=== PATIENT | female | born 1975 | race Caucasian/White ===

== ENCOUNTER → 2016-07-18 | Day surgery (SDC) | payer OTHER ==
[~2016-07-18] VITALS: Ht 165.1 cm; Wt 55.3 kg
[~2016-07-18] MED LIST: ADDERAL20 MG ORAL; ADDERALL XR 1010 MG ORAL; Depo-Medrol 80mg Vial IARTIC ONE; Depo-Medrol 80mg Vial ONE; OXYCONTIN30 MG ORAL; ZOLOFT100 MG ORAL
--- NOTE | 2016-07-18 08:55 | Short Stay Surgery H&P ---
History of Present Illness History of Present Illness Chief Complaint back pain HPI Amanda Castillo is a 40 year old female who was admitted on for Spondylosis w /o myelopathy Patient History PAST MEDICAL HISTORY: (1) Lumbosacral spondylosis Past Surgeries: Social History: Review of Systems Cardiovascular: Denies: CABG, CAD - stable, CHF, AR, angina, dysrhythmia, hypertension, no symptoms, other, peripheral vascular disease, rheumatic heart disease, see HPI, source of infx - skin, source of infx-indw cath, source of infx-prosthesis, valvular disease Respiratory: Denies: COPD, CPAP, URI, asthma, chronic bronchitis, home 02, no symptoms, other, pneumonia, see HPI, sleep apnea, tuberculosis Skeletal: Reports: other - baron sherly, spinal disc disease Gastrointestinal: Denies: gastro esophageal reflux disease, hepatitis A,B,C, hiatal hernia, jaundice, no symptoms, obesity, other, peptic ulcer disease, see HPI Genitourinary: Denies: BPH, UTI, dialysis, endstage renal disease, no symptoms , other, renal insufficiency, see HPI, urinary retention Neurologic: Denies: neuro muscular disease, neuropathy, no symptoms, other, see HPI, seizure, stroke/TIA Endocrine: Denies: diabetes - type 1, diabetes - type 2, no symptoms, other, post menopausal, see HPI, thyroid Hematologic: Denies: anemia, coagulopathy, no symptoms, other, prior transfusion, see HPI Physical Exam Skin: normal HENT: normal Heart: normal Lungs: normal Abdomen: normal Extremities: normal Genitourinary: normal Plan Plan of Care L2-L3 and possible L3-L4 intra-articular facet injections Preop Interventions rest, heat, ice, medication, physical therapy, pain injections, surgery Summary of Findings baron sherly, scoliosis, lumbosacral spondylosis Final Diagnosis: Attestation Are the patient's medical conditions optimized for surgery? Attestation Response: yes MARIAELENA MONTOYA M.D. Jul 18, 2016 08:55
--- NOTE | 2016-07-18 08:56 | Pre-Procedure Note/Attestation ---
Pre-Procedure Note/Attestation Complete Prior to Procedure Planned Procedure: bilateral Procedure Narrative: L2-L3 and possible L3-L4 bilateral intra-articular facet injections under fluoroscopic guidance. Indications for Procedure Pre-Operative Diagnosis: lumbosacral spondylosis Attestation I attest that I discussed the nature of the procedure; its benefits; risks and complications; and alternatives (and the risks and benefits of such alternatives ), prior to the procedure, with the patient (or the patient's legal livestock sales representative). I attest that, if there was a reasonable possibility of needing a blood transfusion, the patient (or the patient's legal livestock sales representative) was given the [place] [facility] [employer] [facility] standardized written summary, pursuant to the Ivan Yarnell Blood Safety Act ([place] Health and Safety Code # 1645, as amended). I attest that I re-evaluated the patient just prior to the surgery and that there has been no change in the patient's H&P, except as documented below: MARIAELENA MONTOYA M.D. Jul 18, 2016 08:56
[2016-07-18 09:21] VITALS: BP 130/79
[2016-07-18 10:10] VITALS: BP 122/69
--- NOTE | 2016-07-18 13:17 | Brief Operative Note ---
Immediate Post Operative Note Operative Note Chief Complaint: lower back pain Pre-op Diagnosis: lumbosacral spondylosis Procedure: Bilateral L2-L3 and L3-L4 intra articular facet injections under fluoroscopic guidance. Post-op Diagnosis: lumbosacral spondylosis Post-op Diagnosis: same as pre-op Findings: consistent w/pre-op dx studies Surgeon: Mariaelena Montoya MD Chief Construction Inspector: none Additional Surgeons: none Anesthesiologist: none Anesthesia: local Specimen: none Complications: none Condition: stable Fluids: none Estimated Blood Loss: none Drains: none Packing: none Tourniquet time: 0 Implant(s) used?: No MARIAELENA MONTOYA M.D. Jul 18, 2016 13:17
--- NOTE | 2016-07-18 13:23 | Discharge Summary ---
Discharge Summary Hospital Course Date of Admission 07/18/2016 Date of Discharge 07/18/2016 Admitting Diagnosis lumbosacral spondylosis Reason for Hospitalization: short stay for a pain injection HPI Amanda Castillo is a 40 year old female who was admitted on for Spondylosis w /o myelopathy Consultations none Procedures Bilateral L2-L3 and L3-L4 intra-articular facet injections under fluoroscopic guidance. Hospital Course short stay Discharge Condition Upon Discharge: stable Discharge Disposition Patient was discharged to home with . Discharge Diagnoses: (1) Lumbosacral spondylosis Discharge Instructions Discharge Instructions Follow up with: Mariaelena Samuels MD Diet: regular Activity: okay to shower For Surgical Patients Clean and Dry: surgical site Dressing Care: may change May shower: Yes Contact your physician for: bleeding, pain, tenderness, redness, swelling, yellowish discharge in the op. site MARIAELENA MONTOYA M.D. Jul 18, 2016 13:23
--- NOTE | 2016-07-18 14:37 | Operative Note - PDOC ---
Operative Note Operative Note Date of Operation/Procedure: Jul 18, 2016 Chief Complaint: lower back pain Pre-op Diagnosis: lumbosacral spondylosis Procedure: Bilateral L2-L3 and L3-L4 intra articular facet injections under fluoroscopic guidance. Post-op Diagnosis: lumbosacral spondylosis Post-op Diagnosis: same as pre-op Operative Findings: consistent w/pre-op dx studies Surgeon: Mariaelena Montoya MD Nurse Quality: none Additional Surgeons: none Anesthesiologist: none Anesthesia: local Specimen: none Complications: none Condition: stable Fluids: none Estimated Blood Loss: none Drains: none Packing: none Tourniquet time: 0 Implant(s) used?: No Indications for Procedure The patient has a history of lower back pain and scoliosis and previous surgery with Jones Alon placement. She has failed conservative treatment such as physical therapy and medication and is here for bilateral facet injections. Pre procedure VAS is eight out of ten. Description of Procedure The patient was seen and identified in the preoperative area. Risks, benefits, complications, and alternatives were discussed with the patient. The patient agreed to proceed with the procedure and signed the consent. The patient was placed in the prone position, and lumbosacral area was prepped with betadine x 3 and draped in the usual sterile fashion. Critical pause was taken. Using right oblique fluoroscopy, the right L2-L3 and L3-L4 intraarticular joints were identified, and skin and deeper tissues were anesthetized with 1% lidocaine. We used 25-gauge 3.5-inch spinal needles for the procedure. The first needle was guided by fluoroscopy to the L2-L3 intraarticular joint. The second needle was guided by fluoroscopy to the L3-L4 intraarticular joint. Tip position was confirmed on lateral fluoroscopy. After negative aspiration of CSF and blood with no paresthesias, 0.5mL of Isoview M300 was injected illustrating excellent arthrogram. Again after negative aspiration of CSF and blood with no paresthesias, 1 mL of a block solution was injected at each level. Block solution contained 1mL of 80 mg of Depo-Medrol and 3 mL of 1% preservative-free lidocaine. The fluoroscopic camera was then placed in the left oblique position and the same procedure was repeated on the left side. The needles were removed, skin was cleansed, and bandages were applied. The patient tolerated the procedure well without complications, and was discharged from recovery room after meeting discharge criteria. Follow up: Post procedure VAS was 0/10. Facet loading was negative. The patient will follow up in two weeks. A pain diary was given to the patient. MARIAELENA MONTOYA M.D. Jul 18, 2016 14:37
== END | disposition home or self-care (01) ==
LOC: SDS 08:23
DX: M47.816 Spondylosis without myelopathy or radiculopathy, lumbar region (principal)
CPT/HCPCS: 64493; 64494; 77003; 81025; J1040; Q9967; 64483; 64484